=== PATIENT | female | born 1965 | race Caucasian/White ===

== ENCOUNTER 2018-12-21 17:13 | Emergency (ER) | payer BC, OTHER ==
[~2018-12-21] VITALS: Ht 149.9 cm; Wt 72.7 kg
[~2018-12-21 17:13] MED LIST: DEXL30CA3 PO; SUCR1ORA2 PO
[2018-12-21 18:08] LABS: D-DIMER 0.65 MG/L FEU (0-0.50)
--- NOTE | 2018-12-21 18:36 | NUR ---
Patient is with echo vascular tech at this time, I will continue to monitor.
[2018-12-21 19:22] VITALS: BP 148/92
== END 2018-12-21 19:26 | disposition home or self-care (01) ==
LOC: ER 17:13
DX: M79.604 Pain in right leg (principal); J45.909 Unspecified asthma, uncomplicated; E11.9 Type 2 diabetes mellitus without complications; Z98.890 Other specified postprocedural states; Z88.2 Allergy status to sulfonamides; Z88.1 Allergy status to other antibiotic agents; Z79.899 Other long term (current) drug therapy
CPT/HCPCS: 36415; 85379; 93971; 99284

== ENCOUNTER 2020-02-20 14:08 | Emergency (ER) | payer BC ==
[~2020-02-20] VITALS: Ht 149.9 cm; Wt 71.8 kg
--- NOTE | 2020-02-20 14:16 | NUR ---
CSM intact distal to injury
[2020-02-20] MEDS ORDERED: HYDROcodone/acetaminophen 10/325mg tab PO ONE (14:20)
[2020-02-20] MEDS ORDERED: propofol 10mg/ml 20ml vial IV ONE (14:40)
[2020-02-20] MEDS ORDERED: fentaNYL/PF 50MCG/1 ML 2ML syringe IV ONE (14:40)
[2020-02-20] MEDS ORDERED: ondansetron/PF 4mg/2ml inj IV ONE (15:10)
[2020-02-20] MEDS ORDERED: HYDR-4383 PO (15:39)
[2020-02-20 17:23] VITALS: BP 138/79
== END 2020-02-20 17:06 | disposition home or self-care (01) ==
LOC: ER 14:09
DX: S82.892A Other fracture of left lower leg, initial encounter for closed fracture (principal); S93.05XA Dislocation of left ankle joint, initial encounter; J45.909 Unspecified asthma, uncomplicated; E11.9 Type 2 diabetes mellitus without complications; Z88.2 Allergy status to sulfonamides; Z88.1 Allergy status to other antibiotic agents; Z79.899 Other long term (current) drug therapy; Z98.890 Other specified postprocedural states; W18.39XA Other fall on same level, initial encounter; Y93.89 Activity, other specified; Y92.89 Other specified places as the place of occurrence of the external cause; Y99.8 Other external cause status
CPT/HCPCS: 27762; 73600; 94799; 96374; 96375; 99152; 99285; J2405; J2704; J3010; 27840; 94760